=== PATIENT | male | born 1945 | race Caucasian/White ===

== ENCOUNTER 2018-10-16 14:26 | Observation (INO) | payer OTHER ==
[~2018-10-16] VITALS: Ht 180.3 cm; Wt 102.4 kg
[2018-10-16 14:42] LABS: BASOPHILS % (AUTO) 0.6 % (0.0-5.0); EOSINOPHILS % (AUTO) 3.4 % (0.0-8.0); HEMATOCRIT 44.2 % (42-54); LYMPHOCYTES % (AUTO) 26.9 % (21.0-51.0); MEAN CORPUSCULAR HEMOGLOBIN 31.2 pg (27.0-33.0); MEAN CORPUSCULAR HGB CONC 34.9 g/dL (32.0-36.0); MEAN CORPUSCULAR VOLUME 89.3 fL (79-99); MONOCYTES % (AUTO) 12.9 % (3.0-13.0); NEUTROPHILS % (AUTO) 56.2 % (40.0-77.0); NUCLEATED RED BLOOD CELLS 0.1 % (0.0-0.19); PLATELET COUNT (AUTO) 282 K/uL (130-400); RED BLOOD CELL COUNT(AUTO) 4.95 MIL/uL (4.50-6.20); RED CELL DISTRIBUTION WIDTH 13.4 % (11.0-15.5); WHITE BLOOD COUNT (AUTO) 6.5 K/uL (4.8-10.8)
[2018-10-16] MEDS ORDERED: ASPIRIN 325 MG TABLET ONE (14:48)
[2018-10-16 14:50] LABS: CREATININE 0.9 mg/dL (0.5-1.5)
[2018-10-16 14:55] LABS: INR 0.96 (0.85-1.15); PARTIAL THROMBOPLASTIN TIME 28.5 SEC (26.3-35.5); PROTHROMBIN TIME 10.1 SEC (9.6-11.6)
[2018-10-16 15:01] LABS: ALBUMIN 3.9 g/dL (3.5-5.0); BILIRUBIN,TOTAL 0.7 mg/dL (0.2-1.0); TOTAL PROTEIN, SERUM 7.5 g/dL (6.0-8.3)
[2018-10-16 15:20] LABS: B-TYPE NATRIURETIC PEPTIDE 5 pg/mL (0-100)
[2018-10-16] MEDS ORDERED: LORAZEPAM 1 MG TABLET PO PRN (20:00)
[2018-10-16] MEDS ORDERED: ONDANSETRON HCL 4 MG/2 ML VIAL IV PRN (20:00)
[2018-10-16] MEDS ORDERED: NITROGLYCERIN 1GM/1 INCH PACKET TD SCH (20:00)
[2018-10-16] MEDS ORDERED: MORPHINE SULFATE 4 MG/1ML SYG IV PRN (20:00)
[2018-10-16] MEDS ORDERED: HYDRALAZINE HCL 20 MG/ML VIAL IV PRN (20:00)
[2018-10-16] MEDS ORDERED: ACETAMINOPHEN 325 MG TAB PO PRN ×2 (20:00)
[2018-10-16] MEDS: METOPROLOL TARTRATE 25 MG TAB PO SCH (21:00)
[2018-10-16] MEDS: ENOXAPARIN SODIUM 30 MG/0.3 ML SQ SCH (21:00)
[2018-10-16] MEDS: FAMOTIDINE/PF 20 MG/2 ML VIAL IV SCH (21:00)
[2018-10-16] MEDS ORDERED: ENOXAPARIN SODIUM 30 MG/0.3 ML SQ ONE (22:24)
[2018-10-16] MEDS ORDERED: METOPROLOL TARTRATE 25 MG TAB ONE (22:25)
[2018-10-16] MEDS ORDERED: NITROGLYCERIN 1GM/1 INCH PACKET TD ONE (22:25)
[2018-10-16] MEDS ORDERED: FAMOTIDINE/PF 20 MG/2 ML VIAL IV ONE (22:25)
[2018-10-17 00:25] VITALS: BP 137/73
[2018-10-17 04:00] VITALS: BP 97/58
[2018-10-17] MEDS ORDERED: NITROGLYCERIN 1GM/1 INCH PACKET TD SCH (06:00)
[2018-10-17 07:21] LABS: BASOPHILS % (AUTO) 0.9 % (0.0-5.0); EOSINOPHILS % (AUTO) 4.2 % (0.0-8.0); HEMATOCRIT 44.3 % (42-54); LYMPHOCYTES % (AUTO) 31.3 % (21.0-51.0); MEAN CORPUSCULAR HEMOGLOBIN 30.8 pg (27.0-33.0); MEAN CORPUSCULAR HGB CONC 33.9 g/dL (32.0-36.0); MONOCYTES % (AUTO) 14.2 % (3.0-13.0); NEUTROPHILS % (AUTO) 49.4 % (40.0-77.0); NUCLEATED RED BLOOD CELLS 0.1 % (0.0-0.19); PLATELET COUNT (AUTO) 273 K/uL (130-400); RED BLOOD CELL COUNT(AUTO) 4.87 MIL/uL (4.50-6.20); RED CELL DISTRIBUTION WIDTH 13.5 % (11.0-15.5); WHITE BLOOD COUNT (AUTO) 7.5 K/uL (4.8-10.8)
[2018-10-17 07:32] LABS: HEMOGLOBIN A1C 6.3 % (4.0-6.0)
[2018-10-17 07:33] LABS: POTASSIUM 4.9 mmol/L (3.5-5.1)
[2018-10-17 08:08] VITALS: BP 112/63
[2018-10-17] MEDS ORDERED: TIOT18CA3 IH (08:30)
[2018-10-17] MEDS ORDERED: MELO-108 PO (08:30)
[2018-10-17] MEDS ORDERED: LISI40TA4 PO (08:30)
[2018-10-17] MEDS ORDERED: CETI10TA57 PO (08:30)
[2018-10-17] MEDS ORDERED: FLUT16H NASAL (08:42)
[2018-10-17] MEDS ORDERED: ATOR40TA71 PO (08:42)
[2018-10-17] MEDS ORDERED: KETO5DRO6 OP (08:42)
[2018-10-17] MEDS ORDERED: DIFL5DRO OP (08:42)
[2018-10-17] MEDS: METOPROLOL TARTRATE 25 MG TAB PO SCH (08:51)
[2018-10-17] MEDS: ENOXAPARIN SODIUM 30 MG/0.3 ML SQ SCH (08:53)
[2018-10-17] MEDS: FAMOTIDINE/PF 20 MG/2 ML VIAL IV SCH (08:53)
[2018-10-17] MEDS ORDERED: ASPIRIN 325 MG TABLET PO SCH (09:00)
[2018-10-17 11:49] VITALS: BP 107/53
[2018-10-17 11:51] LABS: AMYLASE 38 U/L (25-115); LIPASE 159 U/L (114-286)
[2018-10-17 13:14] LABS: APPEARANCE,URINE Clear (CLEAR); BILIRUBIN,URINE Negative (NEGATIVE); COLOR,URINE Yellow (YELLOW); GLUCOSE, URINE (UA) Negative (NEGATIVE); KETONES,URINE Negative (NEGATIVE); LEUKOCYTE ESTERASE ,URINE Negative (NEGATIVE); NITRATE,URINE Negative (NEGATIVE); OCCULT BLOOD,URINE Negative (NEGATIVE); PH,URINE 5.5 (5.0-8.0); PROTEIN,URINE Negative (NEGATIVE)
[2018-10-17 15:32] VITALS: BP 119/65
== END 2018-10-17 19:25 | disposition home or self-care (01) ==
LOC: EDH 14:26 → EDHIP 19:20 → INTOOBSV 19:20 → 3BH 10-17 00:25
PROVIDERS: ADMIT Internal Medicine; ATTEND Internal Medicine
DX: R07.89 Other chest pain (principal); E66.9 Obesity, unspecified; E78.5 Hyperlipidemia, unspecified; G47.30 Sleep apnea, unspecified; I10 Essential (primary) hypertension; J44.9 Chronic obstructive pulmonary disease, unspecified; K21.9 Gastro-esophageal reflux disease without esophagitis; K57.90 Diverticulosis of intestine, part unspecified, without perforation or abscess without bleeding; Z88.1 Allergy status to other antibiotic agents; F43.10 Post-traumatic stress disorder, unspecified; Z96.653 Presence of artificial knee joint, bilateral; Z98.41 Cataract extraction status, right eye; Z98.42 Cataract extraction status, left eye; Z79.899 Other long term (current) drug therapy
CPT/HCPCS: 36415 ×2; 71045; 74018; 80048; 80053; 80061; 81003; 82150; 82550; 83036; 83690; 83874; 83880; 84484 ×4; 85025 ×2; 85610; 85730; 93005; 96372; 96374; 99284; G0378 ×24; J1650 ×2; J3490 ×2